=== PATIENT | male | born 1980 | race Two or more races ===

== ENCOUNTER 2022-09-01 08:27 | Emergency (ER) | payer OTHER ==
[~2022-09-01] VITALS: Ht 182.9 cm; Wt 158.8 kg
[2022-09-01] MEDS ORDERED: GLUMETZA1000 MG PO (08:34)
[2022-09-01] MEDS ORDERED: LOSARTAN-HCTZ1 EAC2 PO (08:36)
[2022-09-01] MEDS ORDERED: GLIPIZIDE XL10 MG (08:37)
[2022-09-01] MEDS ORDERED: LIPITOR40 M1 PO (08:37)
== END 2022-09-01 11:19 | disposition home or self-care (01) ==
LOC: ER 08:27
DX: N49.2 Inflammatory disorders of scrotum (principal)

== ENCOUNTER 2022-09-09 06:37 | Outpatient (CLI) | payer OTHER ==
[~2022-09-09 06:37] MED LIST: GLIPIZIDE XL10 MG; GLUMETZA1000 MG PO; LIPITOR40 M1 PO; LOSARTAN-HCTZ1 EAC2 PO
== END 2022-09-09 07:01 | disposition home or self-care (01) ==
LOC: LAB 06:37
DX: E11.65 Type 2 diabetes mellitus with hyperglycemia (principal); Z13.220 Encounter for screening for lipoid disorders; Z13.39 Encounter for screening examination for other mental health and behavioral disorders; E66.8 Other obesity; Z12.11 Encounter for screening for malignant neoplasm of colon; Z11.4 Encounter for screening for human immunodeficiency virus [HIV]; D72.829 Elevated white blood cell count, unspecified

== ENCOUNTER 2023-01-20 11:47 | Outpatient (CLI) | payer OTHER | END 2023-01-20 11:52 | disposition home or self-care (01) | LOC: RAD 11:47 | DX: J10.00 Influenza due to other identified influenza virus with unspecified type of pneumonia (principal) ==

== ENCOUNTER 2023-02-14 14:42 | Outpatient (CLI) | payer OTHER | END 2023-02-14 14:52 | disposition home or self-care (01) | LOC: PPH VACUNA 14:42 | PROVIDERS: ATTEND Emergency Medicine Pediatric Emergency Medicine | DX: Z23 Encounter for immunization (principal) | CPT/HCPCS: 90686; G0008 ==

== ENCOUNTER 2023-03-11 07:13 | Outpatient (CLI) | payer OTHER ==
[2023-03-11 07:57] LABS: PH,URINE 5.5 (5.0-8.0); URINE APPEARANCE Clear; URINE BILIRRUBIN Negative (NEGATIVE); URINE BLOOD Negative; URINE COLOR Dark Yellow; URINE GLUCOSE Negative (NEGATIVE); URINE LEUKOCYTE Negative; URINE NITRATE Negative; URINE PROTEIN Negative (NEGATIVE)
[2023-03-11 07:58] LABS: URINE BACTERIA 238.1 uL (0.0-1933); URINE EPITHELIAL CELLS 3.8 uL (0.0-38.8); URINE RBC 18.9 uL (0.0-20.8)
[2023-03-11 08:22] LABS: ALBUMIN 3.7 gm/dL (3.4-5.0); BILIRUBIN TOTAL 0.66 mg/dL (0.3-1.2); CALCIUM 8.8 mg/dL (8.5-10.1); CHOL HDL RATIO 2.5 (0-5.0); CREATININE SERUM 0.73 mg/dL (0.70-1.30); GFR 117.26; GLOBULINA 2.8 G/DL (2.4-3.5); POTASSIUM 3.86 mEq/L (3.5-5.1); TOTAL PROTEIN 6.5 gm/dL (6.4-8.2)
== END 2023-03-11 07:33 | disposition home or self-care (01) ==
LOC: LAB 07:13
DX: E78.00 Pure hypercholesterolemia, unspecified (principal); Z88.0 Allergy status to penicillin

== ENCOUNTER 2023-03-13 15:25 | Emergency (ER) | payer OTHER ==
[~2023-03-13] VITALS: Ht 182.9 cm; Wt 158.8 kg
== END 2023-03-13 18:05 | disposition home or self-care (01) ==
LOC: ER 15:25
DX: R53.81 Other malaise (principal); J06.9 Acute upper respiratory infection, unspecified; Z88.0 Allergy status to penicillin

== ENCOUNTER 2023-05-06 08:33 | Emergency (ER) | payer OTHER ==
[~2023-05-06] VITALS: Ht 182.9 cm; Wt 158.8 kg
[2023-05-06 10:30] LABS: HEMATOCRIT 45.4 % (39.0-48.0); HEMOGLOBIN 15.2 g/dL (13-16.00); MEAN CELL VOLUME 84.5 fL (80.0-100.00); MEAN CORPUSCULAR HEMOGLOBIN 28.3 pg (27.00-32.0); MEAN CORPUSCULAR HGB CONC 33.5 g/dl (32.0-36.0); PLATELET COUNT 289 K/uL (150-450); RED BLOOD COUNT 5.37 M/uL (4.00-6.00); RED CELL DISTRIBUTION WIDTH 13.8 % (11.5-14.5)
[2023-05-06 11:08] LABS: CALCIUM 9.3 mg/dL (8.5-10.1); CREATININE SERUM 0.79 mg/dL (0.70-1.30); GFR 107.05; POTASSIUM 3.94 mEq/L (3.5-5.1)
== END 2023-05-06 13:24 | disposition home or self-care (01) ==
LOC: ER 08:34
PROVIDERS: General Practice
DX: N49.2 Inflammatory disorders of scrotum (principal); E11.9 Type 2 diabetes mellitus without complications; Z79.84 Long term (current) use of oral hypoglycemic drugs; I10 Essential (primary) hypertension; Z88.0 Allergy status to penicillin

== ENCOUNTER 2023-08-19 06:26 | Outpatient (CLI) | payer OTHER ==
[2023-08-19 07:35] LABS: HEMATOCRIT 44.4 % (39.0-48.0); HEMOGLOBIN 14.8 g/dL (13-16.00); MEAN CELL VOLUME 83.2 fL (80.0-100.00); MEAN CORPUSCULAR HEMOGLOBIN 27.7 pg (27.00-32.0); MEAN CORPUSCULAR HGB CONC 33.3 g/dl (32.0-36.0); PLATELET COUNT 268 K/uL (150-450); RED BLOOD COUNT 5.34 M/uL (4.00-6.00); RED CELL DISTRIBUTION WIDTH 14.2 % (11.5-14.5)
[2023-08-19 07:54] LABS: URINE APPEARANCE Clear; URINE BILIRRUBIN Negative (NEGATIVE); URINE BLOOD Negative; URINE COLOR Yellow; URINE LEUKOCYTE Negative; URINE NITRATE Negative; URINE PROTEIN Negative (NEGATIVE); URINE UROBILINOGEN 0.2 E.U./dl
[2023-08-19 07:58] LABS: URINE BACTERIA 343.7 uL (0.0-1933); URINE EPITHELIAL CELLS 1.8 uL (0.0-38.8); URINE RBC 31.4 uL (0.0-20.8); URINE WBC 1.8 uL (0.0-23.2)
[2023-08-19 08:28] LABS: URINE GLUCOSE >=1000 MG/DL (NEGATIVE); URINE YEAST FEW /hpf
[2023-08-19 08:33] LABS: ALBUMIN 3.4 gm/dL (3.4-5.0); BILIRUBIN TOTAL 0.57 mg/dL (0.3-1.2); CALCIUM 8.9 mg/dL (8.5-10.1); CHOL HDL RATIO 2.8 (0-5.0); CREATININE SERUM 0.71 mg/dL (0.70-1.30); GFR 120.52; GLOBULINA 2.9 G/DL (2.4-3.5); POTASSIUM 4.39 mEq/L (3.5-5.1); TOTAL PROTEIN 6.3 gm/dL (6.4-8.2)
== END 2023-08-19 06:31 | disposition home or self-care (01) ==
LOC: LAB 06:26
PROVIDERS: ATTEND Internal Medicine Endocrinology, Diabetes & Metabolism
DX: E11.65 Type 2 diabetes mellitus with hyperglycemia (principal); E78.00 Pure hypercholesterolemia, unspecified

== ENCOUNTER 2023-12-31 06:23 | Outpatient (CLI) | payer OTHER ==
[2023-12-31 06:59] LABS: HEMATOCRIT 45.8 % (39.0-48.0); HEMOGLOBIN 14.9 g/dL (13-16.00); MEAN CELL VOLUME 83.7 fL (80.0-100.00); MEAN CORPUSCULAR HEMOGLOBIN 27.3 pg (27.00-32.0); MEAN CORPUSCULAR HGB CONC 32.6 g/dl (32.0-36.0); PLATELET COUNT 243 K/uL (150-450); RED BLOOD COUNT 5.47 M/uL (4.00-6.00); RED CELL DISTRIBUTION WIDTH 14.3 % (11.5-14.5)
[2023-12-31 06:59] LABS: URINE APPEARANCE Clear; URINE BILIRRUBIN Negative (NEGATIVE); URINE BLOOD Negative; URINE COLOR Yellow; URINE GLUCOSE Negative (NEGATIVE); URINE KETONE Negative (NEGATIVE); URINE LEUKOCYTE Negative; URINE NITRATE Negative; URINE PROTEIN Negative (NEGATIVE)
[2023-12-31 07:03] LABS: URINE BACTERIA 167.5 uL (0.0-1933); URINE EPITHELIAL CELLS 2.6 uL (0.0-38.8); URINE RBC 7.4 uL (0.0-20.8)
[2023-12-31 07:05] LABS: URINE WBC 1.5 uL (0.0-23.2)
[2023-12-31 07:30] LABS: ALBUMIN 3.6 gm/dL (3.4-5.0); BILIRUBIN TOTAL 0.65 mg/dL (0.3-1.2); CHOL HDL RATIO 2.4 (0-5.0); CREATININE SERUM 0.63 mg/dL (0.70-1.30); GFR 138.35; GLOBULINA 2.9 G/DL (2.4-3.5); POTASSIUM 4.05 mEq/L (3.5-5.1); TOTAL PROTEIN 6.5 gm/dL (6.4-8.2)
== END 2023-12-31 06:24 | disposition home or self-care (01) ==
LOC: LAB 06:23
PROVIDERS: ATTEND Internal Medicine Endocrinology, Diabetes & Metabolism
DX: E78.9 Disorder of lipoprotein metabolism, unspecified (principal); E11.65 Type 2 diabetes mellitus with hyperglycemia

== ENCOUNTER 2024-01-12 13:29 | Outpatient (CLI) | payer OTHER | END 2024-01-12 13:35 | disposition home or self-care (01) | LOC: RAD 13:29 | PROVIDERS: ATTEND General Practice | DX: J20.0 Acute bronchitis due to Mycoplasma pneumoniae (principal) ==

== ENCOUNTER 2024-01-16 09:22 | Emergency (ER) | payer OTHER ==
[~2024-01-16] VITALS: Ht 185.4 cm; Wt 151.0 kg
[2024-01-16] MEDS ORDERED: LANTUS SOL100 UNIT/1 SQ (09:49)
[2024-01-16] MEDS ORDERED: KETOROLAC TROMETHAMINE 60 MG VIAL IM STA (11:36)
[2024-01-16] MEDS ORDERED: levoFLOXacin IN DEXTROSE 5 % 500MG/100ML PIGGYBAG IV STA (11:37)
[2024-01-16] MEDS ORDERED: KETOROLAC TROMETHAMINE 60 MG VIAL IM ONE (11:46)
[2024-01-16] MEDS ORDERED: levoFLOXacin IN DEXTROSE 5 % 500MG/100ML PIGGYBAG IV ONE (11:47)
[2024-01-16 12:09] LABS: HEMATOCRIT 46.9 % (39.0-48.0); HEMOGLOBIN 15.5 g/dL (13-16.00); MEAN CELL VOLUME 84.6 fL (80.0-100.00); MEAN CORPUSCULAR HEMOGLOBIN 27.9 pg (27.00-32.0); PLATELET COUNT 262 K/uL (150-450); RED BLOOD COUNT 5.55 M/uL (4.00-6.00); RED CELL DISTRIBUTION WIDTH 14.3 % (11.5-14.5)
[2024-01-16 13:03] LABS: CALCIUM 9.9 mg/dL (8.5-10.1); CREATININE SERUM 1.71 mg/dL (0.70-1.30); GFR 43.71; POTASSIUM 4.23 mEq/L (3.5-5.1)
[2024-01-16] MEDS ORDERED: LIDOCAINE HCL 1% 10ML VIAL ONE (13:08)
== END 2024-01-16 13:50 | disposition home or self-care (01) ==
LOC: ER 09:23
PROVIDERS: General Practice
DX: L03.317 Cellulitis of buttock (principal); E11.65 Type 2 diabetes mellitus with hyperglycemia; Z79.4 Long term (current) use of insulin; Z88.0 Allergy status to penicillin

== ENCOUNTER 2024-03-10 09:45 | Outpatient (CLI) | payer OTHER ==
[~2024-03-10 09:45] MED LIST changes: +LANTUS SOL100 UNIT/1 SQ
== END 2024-03-10 10:00 | disposition home or self-care (01) ==
LOC: PPH VACUNA 09:45
PROVIDERS: ATTEND Emergency Medicine Pediatric Emergency Medicine
DX: Z23 Encounter for immunization (principal)

== ENCOUNTER 2024-04-09 06:11 | Outpatient (CLI) | payer OTHER ==
[2024-04-09 07:10] LABS: PH,URINE 6.5 (5.0-8.0); URINE APPEARANCE Clear; URINE BILIRRUBIN Negative (NEGATIVE); URINE BLOOD Negative; URINE COLOR Yellow; URINE GLUCOSE Negative (NEGATIVE); URINE KETONE Trace (NEGATIVE); URINE LEUKOCYTE Negative; URINE NITRATE Negative; URINE PROTEIN Negative (NEGATIVE); URINE UROBILINOGEN 0.2 E.U./dl
[2024-04-09 07:14] LABS: URINE BACTERIA 283.4 uL (0.0-1933); URINE RBC 17.7 uL (0.0-20.8); URINE WBC 2.7 uL (0.0-23.2)
[2024-04-09 07:31] LABS: URINE EPITHELIAL CELLS 1.2 uL (0.0-38.8)
[2024-04-09 07:50] LABS: ALBUMIN 3.5 gm/dL (3.4-5.0); BILIRUBIN TOTAL 0.61 mg/dL (0.3-1.2); CALCIUM 9.1 mg/dL (8.5-10.1); CREATININE SERUM 0.73 mg/dL (0.70-1.30); GFR 116.72; GLOBULINA 3.1 G/DL (2.4-3.5); POTASSIUM 4.16 mEq/L (3.5-5.1); TOTAL PROTEIN 6.6 gm/dL (6.4-8.2)
== END 2024-04-09 06:18 | disposition home or self-care (01) ==
LOC: LAB 06:11
PROVIDERS: ATTEND Internal Medicine Endocrinology, Diabetes & Metabolism
DX: E11.49 Type 2 diabetes mellitus with other diabetic neurological complication (principal); E78.9 Disorder of lipoprotein metabolism, unspecified

== ENCOUNTER 2024-07-12 06:18 | Outpatient (CLI) | payer OTHER ==
[2024-07-12 07:12] LABS: URINE APPEARANCE Clear; URINE BILIRRUBIN Negative (NEGATIVE); URINE BLOOD Negative; URINE COLOR Yellow; URINE KETONE Negative (NEGATIVE); URINE LEUKOCYTE Negative; URINE NITRATE Negative; URINE PROTEIN Negative (NEGATIVE); URINE UROBILINOGEN 0.2 E.U./dl
[2024-07-12 07:14] LABS: URINE BACTERIA 160.2 uL (0.0-1933); URINE RBC 7.3 uL (0.0-20.8)
[2024-07-12 07:19] LABS: URINE EPITHELIAL CELLS 0.7 uL (0.0-38.8); URINE GLUCOSE >=1000 MG/DL (NEGATIVE)
[2024-07-12 07:52] LABS: ALBUMIN 3.5 gm/dL (3.4-5.0); BILIRUBIN TOTAL 0.49 mg/dL (0.3-1.2); CALCIUM 8.9 mg/dL (8.5-10.1); CHOL HDL RATIO 3.1 (0-5.0); CREATININE SERUM 0.7 mg/dL (0.70-1.30); GFR 121.95; POTASSIUM 4.11 mEq/L (3.5-5.1); TOTAL PROTEIN 6.5 gm/dL (6.4-8.2)
== END 2024-07-12 06:22 | disposition home or self-care (01) ==
LOC: LAB 06:18
PROVIDERS: ATTEND Internal Medicine Endocrinology, Diabetes & Metabolism
DX: E11.65 Type 2 diabetes mellitus with hyperglycemia (principal); E78.00 Pure hypercholesterolemia, unspecified

== ENCOUNTER 2024-08-13 07:44 | Emergency (ER) | payer OTHER ==
[~2024-08-13] VITALS: Ht 182.9 cm; Wt 158.8 kg
== END 2024-08-13 11:21 | disposition home or self-care (01) ==
LOC: ER 07:47
DX: J06.9 Acute upper respiratory infection, unspecified (principal); I10 Essential (primary) hypertension; E11.9 Type 2 diabetes mellitus without complications; Z79.4 Long term (current) use of insulin; Z79.84 Long term (current) use of oral hypoglycemic drugs; Z20.822 Contact with and (suspected) exposure to COVID-19; Z88.0 Allergy status to penicillin

== ENCOUNTER 2024-09-15 10:34 | Inpatient (IN) | payer OTHER ==
[~2024-09-15] VITALS: Ht 182.9 cm; Wt 158.8 kg
[2024-09-15 12:20] LABS: MEAN CELL VOLUME 83.5 fL (80.0-100.00); MEAN CORPUSCULAR HEMOGLOBIN 27.8 pg (27.00-32.0); MEAN CORPUSCULAR HGB CONC 33.3 g/dl (32.0-36.0); PLATELET COUNT 278 K/uL (150-450); RED BLOOD COUNT 5.39 M/uL (4.00-6.00)
[2024-09-15 12:41] LABS: CALCIUM 9.2 mg/dL (8.5-10.1); CREATININE SERUM 0.85 mg/dL (0.70-1.30); GFR 97.47; POTASSIUM 3.88 mEq/L (3.5-5.1)
[2024-09-15 12:48] LABS: URINE APPEARANCE Clear; URINE BILIRRUBIN Negative (NEGATIVE); URINE BLOOD Negative; URINE COLOR Dark Yellow; URINE KETONE 15 (NEGATIVE); URINE LEUKOCYTE Negative; URINE NITRATE Negative; URINE PROTEIN 30 (NEGATIVE)
[2024-09-15 12:50] LABS: URINE BACTERIA 473.6 uL (0.0-1933); URINE CAST 1.76 uL (0.0-1.40); URINE RBC 22.6 uL (0.0-20.8); URINE WBC 11.5 uL (0.0-23.2)
[2024-09-15] MEDS ORDERED: VANCOMYCIN HCL 500 MG VIAL IV STA (13:43)
[2024-09-15] MEDS ORDERED: 0.9 % SODIUM CHLORIDE 1,000 ML IV STA (13:46)
[2024-09-15 13:47] LABS: URINE GLUCOSE >=1000 MG/DL (NEGATIVE)
[2024-09-15] MEDS ORDERED: MORPHINE SULFATE 4 MG/ML VIAL IV STA (15:30)
[2024-09-15] MEDS ORDERED: VANCOMYCIN HCL 1,000 MG VIAL ONE (15:37)
[2024-09-15] MEDS ORDERED: ONDANSETRON HCL 2 MG/ML VIAL ONE (15:37)
[2024-09-15] MEDS ORDERED: FAMOTIDINE/PF 20 MG/2 ML VIAL ONE (15:38)
[2024-09-15] MEDS ORDERED: ONDANSETRON HCL 2 MG/ML VIAL IV ONE (16:00)
[2024-09-15] MEDS ORDERED: FAMOTIDINE/PF 20 MG/2 ML VIAL IV PUSH ONE (16:00)
[2024-09-15] MEDS ORDERED: 0.9 % SODIUM CHLORIDE 1,000 ML IV SCH (19:00)
[2024-09-15] MEDS ORDERED: MORPHINE SULFATE 4 MG/ML CARTRIDGE IV PRN (19:15)
[2024-09-15] MEDS ORDERED: DEXTROSE 50 % IN WATER 0.5 G/ML DISP.SYRIN IV PRN (19:15)
[2024-09-15] MEDS ORDERED: ACETAMINOPHEN 500 MG GEL..CAP PO PRN (19:15)
[2024-09-15] MEDS ORDERED: INSULIN LISPRO 1,000 UNIT/10 ML UNITS SUBCUTANEO PRN (19:15)
[2024-09-15] MEDS ORDERED: CIPROFLOXACIN IN 5 % DEXTROSE 400 MG/200 ML PIGGYBAG IV ONE (19:31)
[2024-09-15 20:25] LABS: INR 1.04; PARTIAL THROMBOPLASTIN TIME 30.5 SECONDS (22.0-34.0); PROTHROMBIN TIME 11.3 SECONDS (9.0-11.5)
[2024-09-15] MEDS ORDERED: CIPROFLOXACIN IN 5 % DEXTROSE 200 ML IV SCH (21:00)
[2024-09-15] MEDS ORDERED: INSULIN GLARGINE,HUM.REC.ANLOG 1,000 UNITS/10 ML UNITS SUBCUTANEO SCH (21:00)
[2024-09-15] MEDS ORDERED: CHLORHEXIDINE GLUCONATE 120 ML BOTTLE TOP ONE (22:11)
[2024-09-15] MEDS ORDERED: hydrALAZINE HCL 20 MG VIAL ONE (22:41)
[2024-09-15] MEDS ORDERED: INSULIN REGULAR, HUMAN 1,000 UNIT/10 ML UNITS ONE ×2 (22:42→22:46)
[2024-09-15] MEDS ORDERED: MORPHINE SULFATE 4 MG/ML VIAL IV ONE (23:55)
[2024-09-16 02:53] VITALS: BP 154/82; O2SAT 97
[2024-09-16] MEDS ORDERED: VANCOMYCIN HCL 1,000 MG VIAL IV SCH (05:00)
[2024-09-16] MEDS ORDERED: INSULIN NPH HUM/REG INSULIN HM 1,000 UNIT/10 ML UNITS SUBCUTANEO STA (08:17)
[2024-09-16] MEDS ORDERED: ENOXAPARIN SODIUM 40 MG/0.4 ML SYRINGE SUBCUTANEO SCH (09:00)
[2024-09-16] MEDS ORDERED: FAMOTIDINE/PF 20 MG in 0.9 % SODIUM CHLORIDE 8 ML IV PUSH SCH (09:00)
[2024-09-16] MEDS ORDERED: LOSARTAN/HYDROCHLOROTHIAZIDE 1 UDTAB TABLET PO SCH (09:00)
[2024-09-16] MEDS ORDERED: ATORVASTATIN CALCIUM 40 MG TABLET PO SCH (09:00)
[2024-09-16 09:58] VITALS: BP 120/76; O2SAT 98
[2024-09-16] MEDS ORDERED: LINEZOLID IN DEXTROSE 5% 300 ML IV NR (14:45)
[2024-09-16] MEDS ORDERED: INSULIN NPH HUM/REG INSULIN HM 1,000 UNIT/10 ML UNITS SUBCUTANEO SCH (17:00)
[2024-09-16] MEDS ORDERED: MEROPENEM 500 MG/VIAL VIAL IV SCH (18:00)
[2024-09-16 18:37] VITALS: BP 126/85
[2024-09-16] MEDS ORDERED: LINEZOLID IN DEXTROSE 5% 300 ML IV SCH (21:00)
[2024-09-17 01:00] VITALS: BP 127/81; O2SAT 97
[2024-09-17 06:10] LABS: HEMATOCRIT 39.3 % (39.0-48.0); MEAN CELL VOLUME 83.6 fL (80.0-100.00); MEAN CORPUSCULAR HEMOGLOBIN 27.6 pg (27.00-32.0); PLATELET COUNT 262 K/uL (150-450); RED CELL DISTRIBUTION WIDTH 13.6 % (11.5-14.5)
[2024-09-17 06:43] LABS: ALBUMIN 2.6 gm/dL (3.4-5.0); BILIRUBIN TOTAL 0.41 mg/dL (0.3-1.2); CALCIUM 8.7 mg/dL (8.5-10.1); CREATININE SERUM 1.33 mg/dL (0.70-1.30); GFR 58.14; GLOBULINA 3.1 G/DL (2.4-3.5); MAGNESIUM 1.8 mg/dL (1.8-2.4); PHOSPHOROUS 3.5 mg/dL (2.5-4.9); POTASSIUM 4.03 mEq/L (3.5-5.1); TOTAL PROTEIN 5.7 gm/dL (6.4-8.2)
[2024-09-17 06:49] LABS: C-REACTIVE PROTEIN 12.6 MG/DL (0.00-0.29)
[2024-09-17] MEDS ORDERED: INSULIN NPH HUM/REG INSULIN HM 1,000 UNIT/10 ML UNITS SUBCUTANEO SCH ×3 (08:00→17:00)
[2024-09-17] MEDS ORDERED: INSULIN NPH HUM/REG INSULIN HM 1,000 UNIT/10 ML UNITS SUBCUTANEO STA (11:05)
[2024-09-17 18:44] VITALS: BP 123/83
[2024-09-17] MEDS ORDERED: MORPHINE SULFATE 4 MG/ML CARTRIDGE IV PRN (20:00)
[2024-09-17] MEDS ORDERED: FAMOtidine 20 MG TABLET PO SCH (21:00)
[2024-09-18 01:11] VITALS: BP 151/93
[2024-09-18] MEDS ORDERED: INSULIN NPH HUM/REG INSULIN HM 1,000 UNIT/10 ML UNITS SUBCUTANEO SCH ×3 (08:00→17:00)
[2024-09-18] MEDS ORDERED: LINEZOLID 600 MG TABLET PO SCH (09:00)
[2024-09-18 09:56] VITALS: BP 158/78; O2SAT 98
[2024-09-18 18:06] VITALS: BP 166/106; O2SAT 97
[2024-09-18 18:29] VITALS: BP 150/87
[2024-09-19 01:38] VITALS: BP 138/90
[2024-09-19 09:27] VITALS: BP 138/87; O2SAT 97
[2024-09-19 17:14] VITALS: BP 173/105; O2SAT 100
[2024-09-19 20:30] VITALS: BP 175/100; O2SAT 98
[2024-09-19] MEDS ORDERED: SODIUM CHLORIDE 0.45 % 1,000 ML IV SCH (20:30)
[2024-09-19] MEDS ORDERED: ENALAPRILAT DIHYDRATE 1.25 MG/ML VIAL IV PRN (20:30)
[2024-09-20 01:48] VITALS: BP 153/87
[2024-09-20 05:51] LABS: HEMATOCRIT 42.8 % (39.0-48.0); HEMOGLOBIN 14.3 g/dL (13-16.00); MEAN CELL VOLUME 83.4 fL (80.0-100.00); MEAN CORPUSCULAR HEMOGLOBIN 27.9 pg (27.00-32.0); MEAN CORPUSCULAR HGB CONC 33.4 g/dl (32.0-36.0); PLATELET COUNT 337 K/uL (150-450); RED BLOOD COUNT 5.13 M/uL (4.00-6.00); RED CELL DISTRIBUTION WIDTH 13.6 % (11.5-14.5)
[2024-09-20 06:51] LABS: CALCIUM 9.5 mg/dL (8.5-10.1); CREATININE SERUM 0.84 mg/dL (0.70-1.30); GFR 98.81; PHOSPHOROUS 4.2 mg/dL (2.5-4.9); POTASSIUM 4.28 mEq/L (3.5-5.1)
[2024-09-20 06:53] LABS: C-REACTIVE PROTEIN 1.85 MG/DL (0.00-0.29)
[2024-09-20] MEDS ORDERED: INSULIN NPH HUM/REG INSULIN HM 1,000 UNIT/10 ML UNITS SUBCUTANEO SCH (08:00)
[2024-09-20 08:34] VITALS: BP 125/81; O2SAT 99
[2024-09-20] MEDS ORDERED: hydrALAZINE HCL 20 MG VIAL IV PRN (09:00)
[2024-09-20 18:48] VITALS: BP 146/95; O2SAT 92
[2024-09-21 02:09] VITALS: BP 162/77; O2SAT 97
[2024-09-21] MEDS ORDERED: INSULIN NPH HUM/REG INSULIN HM 1,000 UNIT/10 ML UNITS SUBCUTANEO SCH ×3 (08:00→17:00)
[2024-09-21 09:02] VITALS: BP 139/87
[2024-09-21 16:42] VITALS: BP 150/94; O2SAT 100
[2024-09-22 03:06] VITALS: BP 145/84; O2SAT 96
[2024-09-22] MEDS ORDERED: MetFORMIN HCL 500 MG TABLET PO SCH (09:00)
[2024-09-22] MEDS ORDERED: INSULIN NPH HUM/REG INSULIN HM 1,000 UNIT/10 ML UNITS SUBCUTANEO SCH (12:00)
[2024-09-22] MEDS ORDERED: BACTRIM 400-801 EACH PO (13:19)
[2024-09-22] MEDS ORDERED: AMOX-CLAV 875-1 EACH PO (13:22)
== END 2024-09-22 13:31 | disposition home or self-care (01) | DRG 855 ==
LOC: ER 10:34 → MEDJ 19:23 → O/R 19:23 → MEDJ 23:50
PROVIDERS: General Practice; Internal Medicine; Internal Medicine Infectious Disease; Urology; ADMIT Internal Medicine; ATTEND Internal Medicine
PROC: BV44ZZZ Ultrasonography of Scrotum (ICD-10-PCS; 2024-09-15)
PROC: 0VT Male Reproductive System, Resection (ICD-10-PCS; 2024-09-15)
PROC: 0V950ZZ Drainage of Scrotum, Open Approach (ICD-10-PCS; principal; 2024-09-15 21:00)
PROC: 0JB73ZZ Excision of Back Subcutaneous Tissue and Fascia, Percutaneous Approach (ICD-10-PCS; 2024-09-20)
DX: A41.9 Sepsis, unspecified organism (principal); N49.2 Inflammatory disorders of scrotum; E11.65 Type 2 diabetes mellitus with hyperglycemia; Z79.4 Long term (current) use of insulin; I10 Essential (primary) hypertension; E78.49 Other hyperlipidemia; R65.10 Systemic inflammatory response syndrome (SIRS) of non-infectious origin without acute organ dysfunction; N43.2 Other hydrocele; E66.9 Obesity, unspecified

== ENCOUNTER 2025-01-11 14:37 | Outpatient (CLI) | payer OTHER ==
[~2025-01-11 14:37] MED LIST changes: +AMOX-CLAV 875-1 EACH PO; +BACTRIM 400-801 EACH PO
== END 2025-01-11 14:41 | disposition home or self-care (01) ==
LOC: RAD 14:37
DX: J10.00 Influenza due to other identified influenza virus with unspecified type of pneumonia (principal)

== ENCOUNTER 2025-03-21 06:12 | Outpatient (CLI) | payer OTHER ==
[2025-03-21 07:16] LABS: URINE APPEARANCE Clear; URINE BILIRRUBIN Negative (NEGATIVE); URINE BLOOD Negative; URINE COLOR Yellow; URINE KETONE Trace (NEGATIVE); URINE LEUKOCYTE Negative; URINE NITRATE Negative; URINE PROTEIN Negative (NEGATIVE); URINE UROBILINOGEN 0.2 E.U./dl
[2025-03-21 07:18] LABS: URINE BACTERIA 331.1 uL (0.0-1933); URINE EPITHELIAL CELLS 7.8 uL (0.0-38.8); URINE RBC 9.8 uL (0.0-20.8)
[2025-03-21 07:23] LABS: URINE CAST 0.00 uL (0.0-1.40); URINE GLUCOSE >=1000 MG/DL (NEGATIVE); URINE WBC 1.6 uL (0.0-23.2)
[2025-03-21 08:34] LABS: ALT/SGPT 30.0 U/L (12-78); AST/SGOT 15.0 U/L (15-37); BILIRUBIN TOTAL 0.44 mg/dL (0.3-1.2); BUN CREA RATIO 26.0 (7.0-25.0); CHOL HDL RATIO 3.8 (0-5.0); CREATININE SERUM 0.73 mg/dL (0.70-1.30); GFR 116.19; GLOBULINA 3.1 G/DL (2.4-3.5); HDL 42.0 mg/dl (40-60); LDL 99.0 mg/dl (0-130); OSMOLALITY SERUM 284.0 MOSM/KG (275-295); VLDL 17.0 (0-39)
[2025-03-21 08:35] LABS: GLUCOSE FASTING 236.0 mg/dL (65-100)
== END 2025-03-21 06:16 | disposition home or self-care (01) ==
LOC: LAB 06:12
PROVIDERS: ATTEND Internal Medicine Endocrinology, Diabetes & Metabolism
DX: E11.65 Type 2 diabetes mellitus with hyperglycemia (principal); E78.5 Hyperlipidemia, unspecified; E03.9 Hypothyroidism, unspecified

== ENCOUNTER 2025-05-01 11:08 | Inpatient (IN) | payer OTHER ==
[~2025-05-01] VITALS: Ht 182.9 cm; Wt 158.8 kg
--- NOTE | 2025-05-01 11:23 | NUR ---
SE RECIBE PTE ALERTA Y ORIENTADO X3 QUIEN REFIERE TENER UN ABSCESO EN TESTIUCLO DERECHO. SE MIDEN S/V Y SE UBICA. PTE REFIERE NO QUERER ESTAR ACOSTADO PORQUE LE CA[place] MAS DOLOR.
[2025-05-01] MEDS ORDERED: levoFLOXacin IN DEXTROSE 5 % 5 MG/ML PIGGYBAG IV STA (11:52)
[2025-05-01] MEDS ORDERED: TRAMADOL HCL 50 MG TABLET PO STA (11:53)
--- NOTE | 2025-05-01 12:33 | NUR ---
SE ORIENTA A PACIENTE SOBRE TRATAMIENTO MEDICO, REFIERE ENTENDER. SE REALIZAN MUESTRAS DE LABORATORIO BAJO MEDIDAS ASEPTICAS. SE ADMINISTRAN MEDICAMENTOS DHAVAL ORDEN MEDICA. SE COORDINA CT Y SONOGRAMA.
[2025-05-01 12:35] LABS: BASO % 0.5 % (0.1-1.2); EOS # 0.20 (0.04-0.54); EOS % 1.2 % (0.7-7.0); LYMPH # 2.49 (1.18-3.74); LYMPH % 14.5 % (19.3-53.1); MEAN PLATELET VOLUME 11.40 fl (9.4-12.4); MONO # 0.99 (0.24-0.82); MONO % 5.8 % (4.7-12.5); NEUT # 13.33 (1.56-6.13); NEUT % 77.7 % (34.0-71.1); RED CELL DISTRIBUTION WIDTH 13.2 % (11.6-14.4)
[2025-05-01 13:07] LABS: ALT/SGPT 25.0 U/L (12-78); AST/SGOT 11.0 U/L (15-37); BILIRUBIN TOTAL 0.78 mg/dL (0.3-1.2); BUN CREA RATIO 22.0 (7.0-25.0); CREATININE SERUM 0.81 mg/dL (0.70-1.30); GFR 103.05; GLOBULINA 4.0 G/DL (2.4-3.5); GLUCOSE FASTING 148.0 mg/dL (65-100); OSMOLALITY SERUM 288.0 MOSM/KG (275-295)
[2025-05-01 15:45] LABS: URINE APPEARANCE Clear; URINE BACTERIA 154.4 uL (0.0-1933); URINE BILIRRUBIN Negative (NEGATIVE); URINE BLOOD Negative; URINE COLOR Yellow; URINE EPITHELIAL CELLS 1.8 uL (0.0-38.8); URINE KETONE Trace (NEGATIVE); URINE LEUKOCYTE Negative; URINE NITRATE Negative; URINE PROTEIN Negative (NEGATIVE); URINE RBC 8.9 uL (0.0-20.8); URINE UROBILINOGEN 1.0 E.U./dl
[2025-05-01 16:00] LABS: URINE CAST 0.00 uL (0.0-1.40); URINE GLUCOSE >=1000 MG/DL (NEGATIVE); URINE WBC 1.3 uL (0.0-23.2)
[2025-05-01] MEDS ORDERED: LOSARTAN/HYDROCHLOROTHIAZIDE 1 TAB TABLET PO SCH (18:09)
[2025-05-01] MEDS ORDERED: VANCOMYCIN HCL 1,000 MG VIAL IV SCH (18:11)
[2025-05-01] MEDS ORDERED: 0.9 % SODIUM CHLORIDE 1,000 ML IV SCH (18:15)
[2025-05-01] MEDS ORDERED: INSULIN LISPRO 1,000 UNIT/10 ML UNITS SUBCUTANEO PRN (18:15)
[2025-05-01] MEDS ORDERED: ACETAMINOPHEN 500 MG GEL..CAP PO PRN (18:15)
[2025-05-01] MEDS ORDERED: DEXTROSE 50 % IN WATER 0.5 G/ML DISP.SYRIN IV PRN (18:15)
[2025-05-01] MEDS ORDERED: ONDANSETRON HCL 4 MG in 0.9 % SODIUM CHLORIDE 50 ML IV PRN (18:15)
[2025-05-01] MEDS ORDERED: VANCOMYCIN HCL 1,000 MG VIAL ONE (19:31)
[2025-05-01] MEDS ORDERED: CIPROFLOXACIN IN 5 % DEXTROSE 400 MG/200 ML PIGGYBAG IV ONE (20:07)
[2025-05-01] MEDS ORDERED: CIPROFLOXACIN IN 5 % DEXTROSE 200 ML IV SCH (21:00)
[2025-05-01 22:56] VITALS: BP 160/100; O2SAT 99
[2025-05-02] MEDS ORDERED: INSULIN NPH HUM/REG INSULIN HM 1,000 UNIT/10 ML UNITS SUBCUTANEO STA (08:30)
[2025-05-02] MEDS ORDERED: FAMOTIDINE/PF 20 MG in 0.9 % SODIUM CHLORIDE 8 ML IV PUSH SCH (09:00)
[2025-05-02] MEDS ORDERED: ENOXAPARIN SODIUM 40 MG/0.4 ML SYRINGE SUBCUTANEO SCH (09:00)
[2025-05-02 11:36] VITALS: BP 136/87; O2SAT 98
[2025-05-02] MEDS ORDERED: KETOROLAC TROMETHAMINE 30 MG VIAL IV PRN (12:30)
[2025-05-02 16:36] VITALS: BP 114/64; O2SAT 97
[2025-05-02] MEDS ORDERED: INSULIN NPH HUM/REG INSULIN HM 1,000 UNIT/10 ML UNITS SUBCUTANEO SCH (17:00)
[2025-05-02] MEDS ORDERED: LACTOBACILLUS ACIDOPHILUS 1 CAP CAP PO SCH (17:00)
[2025-05-02] MEDS ORDERED: LINEZOLID IN DEXTROSE 5% 300 ML IV SCH (17:00)
[2025-05-02] MEDS ORDERED: MEROPENEM 500 MG/VIAL VIAL IV SCH (18:00)
[2025-05-03 01:02] VITALS: BP 148/90; O2SAT 98
[2025-05-03 06:49] LABS: BASO % 0.9 % (0.1-1.2); EOS # 0.25 (0.04-0.54); EOS % 2.2 % (0.7-7.0); LYMPH # 2.38 (1.18-3.74); LYMPH % 20.8 % (19.3-53.1); MEAN PLATELET VOLUME 11.80 fl (9.4-12.4); MONO # 0.81 (0.24-0.82); MONO % 7.1 % (4.7-12.5); NEUT # 7.85 (1.56-6.13); NEUT % 68.7 % (34.0-71.1); RED CELL DISTRIBUTION WIDTH 13.1 % (11.6-14.4)
[2025-05-03] MEDS ORDERED: INSULIN NPH HUM/REG INSULIN HM 1,000 UNIT/10 ML UNITS SUBCUTANEO SCH (08:00)
[2025-05-03 08:03] LABS: ALT/SGPT 20.0 U/L (12-78); AST/SGOT 10.0 U/L (15-37); BILIRUBIN TOTAL 0.43 mg/dL (0.3-1.2); BUN CREA RATIO 23.0 (7.0-25.0); CREATININE SERUM 0.7 mg/dL (0.70-1.30); GFR 121.95; GLOBULINA 3.1 G/DL (2.4-3.5); GLUCOSE FASTING 174.0 mg/dL (65-100); OSMOLALITY SERUM 285.0 MOSM/KG (275-295)
[2025-05-03 09:40] VITALS: BP 140/85; O2SAT 99
[2025-05-03] MEDS ORDERED: LINEZOLID 600 MG TABLET PO SCH ×2 (17:00→21:00)
[2025-05-03 18:32] VITALS: BP 165/100; O2SAT 97
[2025-05-04 03:29] VITALS: BP 134/90; O2SAT 96
[2025-05-04 09:49] VITALS: BP 150/84; O2SAT 100
[2025-05-04 18:41] VITALS: BP 155/100
[2025-05-05 03:28] VITALS: BP 134/82; O2SAT 97
[2025-05-05 06:19] LABS: BASO % 1.0 % (0.1-1.2); EOS # 0.29 (0.04-0.54); EOS % 2.8 % (0.7-7.0); LYMPH # 2.94 (1.18-3.74); LYMPH % 28.8 % (19.3-53.1); MEAN PLATELET VOLUME 11.60 fl (9.4-12.4); MONO # 0.63 (0.24-0.82); MONO % 6.2 % (4.7-12.5); NEUT # 6.22 (1.56-6.13); NEUT % 60.8 % (34.0-71.1); RED CELL DISTRIBUTION WIDTH 12.9 % (11.6-14.4)
[2025-05-05] MEDS ORDERED: INSULIN NPH HUM/REG INSULIN HM 1,000 UNIT/10 ML UNITS SUBCUTANEO SCH ×3 (08:00→17:00)
[2025-05-05 09:50] VITALS: BP 160/90; O2SAT 99
[2025-05-05] MEDS ORDERED: AMLODIPINE BESYLATE 2.5 MG TABLET PO NR (12:00)
[2025-05-06] MEDS ORDERED: AMLODIPINE BESYLATE 2.5 MG TABLET PO SCH (09:00)
== END 2025-05-05 13:59 | disposition home or self-care (01) | DRG 727 ==
LOC: ER 11:08 → SEC-K 20:03 → MEDJ 20:03
PROVIDERS: General Practice; Internal Medicine Infectious Disease; ADMIT Internal Medicine; ATTEND Internal Medicine
PROC: BV44ZZZ Ultrasonography of Scrotum (ICD-10-PCS; principal; 2025-05-01)
PROC: BW2GZZZ Computerized Tomography (CT Scan) of Pelvic Region (ICD-10-PCS; 2025-05-01)
DX: N45.4 Abscess of epididymis or testis (principal); A41.9 Sepsis, unspecified organism; R65.10 Systemic inflammatory response syndrome (SIRS) of non-infectious origin without acute organ dysfunction; N50.819 Testicular pain, unspecified; E11.65 Type 2 diabetes mellitus with hyperglycemia